=== PATIENT | male | born 1935 | race Caucasian/White ===

== ENCOUNTER 2016-06-08 14:49 | Inpatient (IN) | payer OTHER ==
[~2016-06-08] VITALS: Ht 170.2 cm; Wt 70.6 kg
[~2016-06-08 14:49] MED LIST: ADVAIR 500/501 DISK IH; ASPIR 8181 M1 PO; AZITHROMYCIN500 M1 PO; CARDIZEM CD,CA180 MG PO; CEFDINIR300 MG PO; NICOTINE PATCH1 EAC1 TD; PREDNISONE20 MG PO; SPIRIVA1 INHALATI IH; VENTOLIN HFA18 GM IH; XOPENEX1.25 MG/0. AEROSOL
[2016-06-08 15:12] LABS: MCH 33.1 PG (29.0-34.0); MCHC 33.9 G/DL (30.0-36.0); MCV 97.5 FL (86-99); MEAN PLAT.VOLUME 10.6 uM^3 (9.0-12.4); PLATELET COUNT 181 K/uL (156-360); RBC DIS.WIDTH-CV 12.3 % (11.8-14.6); RBC DIS.WIDTH-SD 44.4 % (39-53); RED BLOOD COUNT 4.72 M/uL (4.00-5.50)
[2016-06-08 15:33] LABS: CHLORIDE 94 mEq/L (99-109); POTASSIUM 4.3 mEq/L (3.7-5.4); SODIUM 132 mEq/L (136-147)
[2016-06-08 15:35] LABS: GLUCOSE 120 mg/dL (70-99)
[2016-06-08 15:36] LABS: ANION GAP 11 MEQ/L (2-14)
[2016-06-08 15:39] LABS: GFR ESTIMATE (CALCULATED) > 59 mL/min/; UREA NITROGEN (BUN) 12 mg/dL (9-23)
[2016-06-08 15:41] LABS: TROP-I INTERPRETATION NEGATIVE; TROPONIN-I 0.01 ng/mL (0.0-0.30)
[2016-06-08 15:51] LABS: BASE EXCESS 3.1 mEq/L (-3 to +3); BICARBONATE 27.9 mEq/L (22-26); METHEMOGLOBIN 0.6 % (0-1.5); PCO2 42 mm Hg (35-45); PO2 102 mm Hg (80-100); pH 7.43 (7.35-7.45)
[2016-06-08 16:01] LABS: COMMENTS - BLOOD GASES C+; DEVICE NC; O2 FLOW 2 L/MIN; SITE RB; TOTAL RESP RATE 20 resp/min
[2016-06-08 16:21] LABS: ABS NEUTROPHIL COUNT 2.9; ATYPICAL LYMPHOCYTE 2.6 %; BAND NEUTROPHILS 6.1 % (0-8.0); EOSINOPHIL ABS CT 0; INSTRUMENT ABS NEUTROPHIL CT 2.8 K/uL; LYMPHOCYTES 11.3 % (15.0-45.0); METAMYELOCYTES 0.9 %; PLAT.SUFFICIENCY ADEQUATE; SEG.NEUTROPHILS 66.1 % (46.0-76.0); SMUDGE CELLS 9.6
[2016-06-08] MEDS ORDERED: SPIRIVA1 INHALATI IH (20:15)
[2016-06-08] MEDS ORDERED: AZITHROMYCIN250 MG PO (20:16)
[2016-06-08] MEDS ORDERED: PREDNISONE5 MG PO (20:19)
[2016-06-08] MEDS ORDERED: PRESERVISION T1 EACH PO (20:20)
[2016-06-08] MEDS ORDERED: SYMBICORT60 INHALAT IH (20:20)
[2016-06-08 20:33] VITALS: BP 160/88
[2016-06-08 23:51] VITALS: BP 152/80
[2016-06-09 04:00] VITALS: BP 145/78
[2016-06-09 07:23] LABS: MCH 32.6 PG (29.0-34.0); MCHC 33.3 G/DL (30.0-36.0); MCV 97.7 FL (86-99); MEAN PLAT.VOLUME 10.4 uM^3 (9.0-12.4); PLATELET COUNT 164 K/uL (156-360); RBC DIS.WIDTH-CV 12.3 % (11.8-14.6); RBC DIS.WIDTH-SD 44.3 % (39-53)
[2016-06-09 07:43] LABS: ANION GAP 8 MEQ/L (2-14); CHLORIDE 97 MEQ/L (99-109); GFR ESTIMATE (CALCULATED) > 59 mL/min/; GLUCOSE 137 mg/dL (70-99); POTASSIUM 4.3 MEQ/L (3.7-5.4); SAMPLE HEMOLYSIS CHECK 0; SAMPLE ICTERIC CHECK 0; SAMPLE LIPEMIA CHECK 0; SODIUM 136 MEQ/L (136-147); UREA NITROGEN (BUN) 12 mg/dL (9-23)
[2016-06-09 07:49] LABS: WHITE BLOOD COUNT 2.3 K/uL (4.1-10.2)
[2016-06-09 11:18] VITALS: BP 150/79
[2016-06-09 15:24] VITALS: BP 1321/66
== END 2016-06-09 17:44 | disposition short-term general hospital (02) | DRG 871 ==
LOC: EME 14:49 → EDOF 18:36 → 5SOUTH 20:24
PROVIDERS: Emergency Medicine; Family Medicine
DX: A41.9 Sepsis, unspecified organism (principal); J96.01 Acute respiratory failure with hypoxia; J18.9 Pneumonia, unspecified organism; J44.1 Chronic obstructive pulmonary disease with (acute) exacerbation; I10 Essential (primary) hypertension; F17.210 Nicotine dependence, cigarettes, uncomplicated
CPT/HCPCS: 36600; 71010; 80048; 82803; 84484; 85025; 85027; 87040; 87070; 87205; 87449; 93005; 94640; 94640 76; 94644; 94799; 99202; 99281; 99285; J0696; J1644; J1956; J2930; J7030; J7050; J7512